=== PATIENT | female | born 1955 | race Caucasian/White ===

== ENCOUNTER → 2018-01-17 | Outpatient (CLI) | payer OTHER ==
--- NOTE | 2018-01-17 14:51 | EXE ---
[place] [address] STRESS ECHOCARDIOGRAM Name: NASH GOSS Room: [facility]#: [id number] Admission: 01/17/18 Attend Phys: Adelaide Blackmon Discharge: Date of : 53 Date of Service: 01/17/18 1450 Report #: [id number] THIS REPORT FOR: //name// APPROVED REPORT Study performed: 01/17/2018 11:26:50 Exam: Stress Echocardiogram Indication: Dyspnea Patient Location: Out-Patient Stress Nurse: Chelsea Alfaro RN Supervising Physician: Roland Tavera MD Status: routine Ht: 5 ft 4 in HR: 93 bpm BP: 166/77 mmHg Procedure The patient underwent an Exercise Stress Test using the Joshua Protocol. Blood pressure, heart rate, and EKG were monitored. An Echocardiogram was performed by dairy laboratory technician in four stages in quad fashion. At peak stress, four selected images were obtained and placed side by side with resting images for comparison. Stress Test Details Stress Test: Exercise stress testing was performed using a Joshua protocol. HR Resting HR: 93 bpm Max Heart Rate (APMHR): 157 bpm Max HR Achieved: 164 bpm Target HR (85% APMHR): 133 bpm % of APMHR: 104 Recovery HR: 98 bpm HR response to stress: Normal HR response to stress BP Resting BP: 166/77 mmHg Max BP: 177/98 mmHg Recovery BP: 140/90 mmHg ECG Clinical Reason for Termination: Completed protocol, Maximal effort Exercise duration: 5 min 59 sec Highest Stage Achieved: Stage 2: 2.5 mph at 12% [place] [address] STRESS ECHOCARDIOGRAM Name: GOSSNASH Room: [facility]#: [id number] Admission: 01/17/18 Attend Phys: Adelaide Blackmon Discharge: Date of : 53 Date of Service: 01/17/18 1450 Report #: [id number] Exercise capacity: 7.05 METs Pre-Stress Echo The resting Echocardiogram showed normal left ventricular contractility with an estimated Ejection Fraction of about 55-60%. Normal wall motion in all segments on baseline images. Post-Stress Echo The stress Echocardiogram showed normal left ventricular contractility with an estimated Ejection Fraction of about >70%. Normal augmentation of wall motion in all segments on post stress images. Clinical Normal augmentation of myocardial wall segments using a 17 segment model. Conclusion Clinical Response: Non-ischemic Exercise Capacity: Average Stress ECG Response: Indeterminant Stress Echo Images: Non-ischemic The patient developed 11/2 mm of slightly upsloping st depression post exercise; the changes are nondiagnostic for ischemia. Echo images post exercise are normal and do not suggest ischemia. Other Information Study Quality: Good <Conclusion> The patient developed 11/2 mm of slightly upsloping st depression post exercise; the changes are nondiagnostic for ischemia. Echo images post exercise are normal and do not suggest ischemia. <ELECTRONICALLY SIGNED> By: Roland Tavera MD, FACC 01/17/18 1450 1450 1450 Roland Tavera MD, FACC /INF
== END ==
LOC: M.CRD 10:44
DX: R06.00 Dyspnea, unspecified (principal); R07.89 Other chest pain